=== PATIENT | female | born 1975 | race Caucasian/White ===

== ENCOUNTER → 2016-11-06 | Outpatient (CLI) | payer OTHER ==
--- NOTE | 2016-11-08 13:01 | DIAGNOSTIC IMAGING REPORT ---
REFERRING PHYSICIAN/PROVIDER: Mark Castaneda MD CONSULTING PROFESSIONAL TUTOR: Mick Mahoney MD PROCEDURE: 2D echo, M-mode and complete color and flow Doppler interrogation TECHNICAL QUALITY: Adequate INDICATION: HEART PALPITATIONS INTERPRETATIONS: CHAMBERS: LEFT ATRIUM: Normal left atrial size. LEFT VENTRICLE: Normal left ventricular size, wall thickness, and systolic function. EF 56%. No wall motion abnormalities. Normal diastolic function. RIGHT ATRIUM: Normal right atrial size. RIGHT VENTRICLE: Normal right ventricular size and systolic function. VALVES: All valves nonrheumatic unless otherwise indicated. AORTIC VALVE: Trileaflet aortic valve with no stenosis. There is moderate aortic regurgitation, PHT 338ms. MITRAL VALVE: No mitral regurgitation. No mitral stenosis. TRICUSPID VALVE: Moderate tricuspid regurgitation. Estimated pulmonary artery systolic pressure is 23 mmHg. PULMONIC VALVE: Trace pulmonic regurgitation. MISCELLANEOUS: No pericardial effusion. HEMODYNAMICS: Normal sized IVC with >50% inspiratory collapse. CVP is 3 mmHg. IMPRESSION: 1. Normal left ventricular size and systolic function, EF 56%. No wall motion abnormalities. 2. Normal diastolic function. 3. Moderate aortic regurgitation. 4. Normal right ventricular size and systolic function. 5. Estimated pulmonary artery systolic pressure is 23 mmHg.
== END ==
LOC: US SRH 09:48
DX: I35.1 Nonrheumatic aortic (valve) insufficiency (principal)